=== PATIENT | female | born 1985 | race Caucasian/White ===

== ENCOUNTER 2022-08-25 18:11 | Emergency (ER) | payer MEDICAID, SELFPAY ==
[2022-08-25 18:29] VITALS: BP 127/75; PULSE 111; RESP 18; TEMP 36.6; O2SAT 98; BMI 29.2
[2022-08-25 18:46] LABS: Basophils % 0.3 %; Eosinophils % 0.2 %; Hematocrit 38.5 % (37.0-47.0); Hemoglobin 12.9 g/dL (11.5-15.3); Lymphocytes # 1.4 10^3/uL (0.8-4.8); Lymphocytes % 9.3 %; Mean Corpuscular HGB Conc 33.5 g/dL (30.0-36.0); Mean Corpuscular Hemoglobin 31.9 pg (28.0-34.0); Mean Corpuscular Volume 95.1 fl (81-99); Mean Platelet Volume 10.1 fL (7.4-10.4); Monocytes # 0.6 10^3/uL (0.2-0.9); Monocytes % 4.2 %; Neutrophils # 12.94 10^3/uL (1.8-7.7); Neutrophils % 85.7 %; Nucleated Red Blood Cells % 0 %; Platelet Count 206 10^3/cmm (130-400); Red Blood Count 4.05 10^6/uL (4.1-5.3); Red Cell Distribution Width 12.3 % (12.1-15.1); White Blood Count 15.1 10^3/uL (4.0-10.0)
--- NOTE | 2022-08-25 19:06 | USR_ITS ---
PROCEDURE INFORMATION: Exam: US First Trimester, Transabdominal and US , Transvaginal Exam date and time: 08/25/2022 7:22 PM Age: 36 years old Clinical indication: Lmp or gestational age (in weeks): 6w 3d; Antepartum complications; ; Patient HX: G5-p3-a1-l3 diffuse pelvic pain which radiates to her back x 3 days. Vaginal bleeding with brownish discharge x 3 days. ; Additional info: Preg/pain LABS AND CLINICAL REPORTS: Serum Choriogonadotropin (HCG): 3794 mIU/mL Last menstrual period start date: 07/10/2022 Gestational age (Established): 6 w 4 d Estimated due date (Established): 04/16/2023 TECHNIQUE: Imaging protocol: Real-time transabdominal obstetrical ultrasound of the maternal pelvis and a first trimester , less than 14 weeks 0 days, with image documentation. Transvaginal imaging was used for better evaluation of the fetus, adnexa, and/or cervix. COMPARISON: No relevant prior studies available. FINDINGS: Gestation: Negative for intrauterine or findings of retained products of conception. MATERNAL: Uterus: Uterus measures 8.1 cm x 5.7 cm x 4.5 cm. Anterior uterine body 2.7 cm fibroid. Endometrial stripe is normal at 2.9 mm. Cervix: Unremarkable. Right ovary/adnexa: Right ovary measures 2.7 cm x 3.1 cm x 19 cm. Right ovarian volume is 8.3 mL. Left ovary/adnexa: Left ovary measures 3.6 cm x 2.6 cm x 2 cm. Left ovarian volume is 10 mL. Intraperitoneal space: Small amount of nonspecific fluid in the pelvis. US/US OB <= 14 weeks fetus [id number] IMPRESSION: 1. Negative for intrauterine or findings of retained products of conception. If clinical concern for retained back to conception remains consider close clinical correlation, serial beta HCG levels and follow-up ultrasound. 2. Anterior uterine body 2.7 cm fibroid. 3. Small amount of nonspecific fluid in the pelvis.
--- NOTE | 2022-08-25 19:10 | W.ED.ABDPA2 ---
HPI - Abdominal Pain General: Chief Complaint: Abdominal Pain Stated Complaint: Preg ABD Pain Time Seen by Provider: 08/25/22 18:57 Source: patient Mode of arrival: ambulatory Limitations: no limitations History of Present Illness: 36 female states she believes she is roughly 6 weeks states she had some spotting here and there over the last 3 to 4 weeks has had some abdominal cramping over that time states her pain did worsen about an hour ago can is a bandlike across her lower abdomen she rates it a 4 out of 10 currently denies any worsening proving factors she is resting comfortably here. Associated Symptoms: Denies chills, diarrhea, dysuria, fever(s), nausea and vomiting Review of Systems Const: Denies: fever(s), chills or body aches ENMT: Denies: throat pain or dental pain Card: Denies: chest pain Resp: Denies: dyspnea GI: Reports: abdominal pain; Denies: nausea, vomiting or diarrhea : Denies: dysuria Musc: Denies: neck pain or back pain Skin/Breast: Denies: rash Neuro: Denies: headache(s) Physical Exam Const: COMMON NORMALS: no acute distress, patient oriented x3 and healthy appearing HENMT: COMMON NORMALS: normocephalic and atraumatic HEAD & SCALP: normocephalic and atraumatic Eye: COMMON NORMALS: conjunctivae normal CONJUNCTIVA: Yes conjunctivae normal Neck/C-Spine: COMMON NORMALS: full ROM and supple Chest: COMMONS NORMALS: normal inspection of the chest and normal palpation of entire chest wall Resp: COMMON NORMALS: normal respiratory effort, No retractions, No use of accessory muscles and clear to auscultation bilaterally AUSCULTATION: clear to auscultation bilaterally Cardio: COMMON NORMALS: regular rate, regular rhythm and No murmurs present (Cardio) RATE: regular rate RHYTHM: regular rhythm GI: COMMON NORMALS: Normal to inspection, nondistended, normoactive bowel sounds present, Soft to palpation and no masses PALPATION: Yes Soft to palpation OTHER: rlq tenderness Extremity: COMMON NORMALS: normal to inspection and full ROM Neuro: COMMON NORMALS: patient oriented x3, moves all extremities and no focal motor deficits Psych: COMMON NORMALS: mental status grossly normal, Normal thought process present and cooperative THOUGHT PROCESS: Normal thought process present Skin: COMMON NORMALS: no rashes or lesions noted and no wounds GENERAL SKIN EXAM: no rashes or lesions noted Course Vital Signs: Vital signs: Vital Signs Temperature 97.8 F 08/25/22 18:29 Pulse Rate 99 08/25/22 19:44 Respiratory Rate 18 08/25/22 19:44 Blood Pressure 123/81 08/25/22 19:14 Pulse Oximetry 97 08/25/22 19:44 Oxygen Delivery Me thod Room Air 08/25/22 19:44 MDM - Abdominal Pain Medical Decision Making Patient presents here with abdominal pain she did have elevated white count is tender in the right lower quadrant she does have an elevated quantitative over 3000 and ultrasound here shows no IUP I did speak to OB I am concerned of a possible ectopic she has no signs of ectopic at this point no heavy bleeding blood pressure is normal her pain is mild hemoglobin is normal. Did speak to her about getting a CT scan to rule out appendicitis she agreed that she should be safe that she has no signs of a viable . CT shows no signs appendicitis. I did speak to patient at length that we see no signs of ectopic at this point but still is very concerned about ectopic she is return in 48 hours for a repeat quantitative did inform her if she has any worsening pain or bleeding she is return immediately she understands agrees to plan. Lab Data 08/25/22 18:24 08/25/22 18:24 Labs/Radiology: Radiology Impressions Ultrasound 08/25/22 19:06 IMPRESSION: 1. Negative for intrauterine or findings of retained products of conception. If clinical concern for retained back to conception remains consider close clinical correlation, serial beta HCG levels and follow-up ultrasound. 2. Anterior uterine body 2.7 cm fibroid. 3. Small amount of nonspecific fluid in the pelvis. Abdomen/Pelvis CT 08/25/22 21:13 IMPRESSION: 1. Negative for acute inflammatory process in the abdomen or pelvis. 2. Hepatic steatosis suspected. Laboratory Results WBC 15.1 10^3/uL (4.0-10.0) H 08/25/22 18:24 RBC 4.05 10^6/uL (4.1-5.3) L 08/25/22 18:24 Hgb 12.9 g/dL (11.5-15.3) 08/25/22 18:24 Hct 38.5 % (37.0-47.0) 08/25/22 18:24 MCV 95.1 fl (81-99) 08/25/22 18:24 MCH 31.9 pg (28.0-34.0) 08/25/22 18:24 MCHC 33.5 g/dL (30.0-36.0) 08/25/22 18:24 RDW 12.3 % (12.1-15.1) 08/25/22 18:24 Plt Count 206 10^3/cmm (130-400) 08/25/22 18:24 MPV 10.1 fL (7.4-10.4) 08/25/22 18:24 Neut % (Auto) 85.7 % 08/25/22 18:24 Lymph % (Auto) 9.3 % 08/25/22 18:24 [place] % (Auto) 4.2 % 08/25/22 18:24 Eos % (Auto) 0.2 % 08/25/22 18:24 Baso % (Auto) 0.3 % 08/25/22 18: Neut # (Auto) 12.94 10^3/uL (1.8-7.7) H 08/25/22 18:24 Lymph # (Auto) 1.4 10^3/uL (0.8-4.8) 08/25/22 18:24 [place] # (Auto) 0.6 10^3/uL (0.2-0.9) 08/25/22 18:24 Eos # (Auto) 0.0 10^3/uL (0.0-0.8) 08/25/22 18: Baso # (Auto) 0.0 10^3/uL (0.0-0.1) 08/25/22 18:24 Nucleated RBC % (auto) 0 % 08/25/22 18: Nucleated RBCs # 0.0 /100WBC 08/25/22 18:24 Sodium 129 mmol/L (136-145) L 08/25/22 18:24 Potassium 3.5 mmol/L (3.5-5.1) 08/25/22 18:24 Chloride 98 mmol/L (98-107) 08/25/22 18:24 Carbon Dioxide 20 mmol/L (22-29) L 08/25/22 18:24 Anion Gap 14.5 (5-19) 08/25/22 18:24 BUN 9 mg/dL (6-20) 08/25/22 18:24 Creatinine 0.6 mg/dL (0.5-0.9) 08/25/22 18:24 GFR Calculation 114.4 mL/min (90-130) 08/25/22 18:24 Glucose 119 mg/dL (65-115) H 08/25/22 18:24 Calculated Osmolality 268 mOsm/kg (285-295) L 08/25/22 18:24 Calcium 8.5 mg/dL (8.5-10.5) 08/25/22 18:24 Total Bilirubin 0.2 mg/dL (0.15-1.2) 08/25/22 18:24 AST 13 U/L (0-32) 08/25/22 18:24 ALT 12 U/L (0-33) 08/25/22 18:24 Alkaline Phosphatase 48 U/L (35-105) 08/25/22 18:24 Total Protein 6.8 g/dL (6.6-8.7) 08/25/22 18:24 Albumin 4.4 g/dL (3.5-5.2) 08/25/22 18:24 Globulin 2.4 g/dL (1.3-4.6) 08/25/22 18:24 Lipase 30 U/L (13-60) 08/25/22 18:24 Ser , Semi-Qnt 3794.00 mIU/mL 08/25/22 18:24 Urine Color Light yellow (Yellow) 08/25/22 19:34 Urine Appearance Sl hazy (CLEAR) A 08/25/22 19:34 Urine pH 6 (5-7) 08/25/22 19:34 Ur Specific [place] 1.005 (1.005-1.030) 08/25/22 19:34 Urine Protein Neg (Negative) 08/25/22 19:34 Urine Glucose (UA) Norm (Normal) 08/25/22 19:34 Urine Ketones Negative (Negative) 08/25/22 19:34 Urine Blood 3+ (Negative) H 08/25/22 19:34 Urine Nitrate Negative (Negative) 08/25/22 19:34 Urine Bilirubin Neg (Negative) 08/25/22 19:34 Urine Urobilinogen Norm mg/dL (Negative) 08/25/22 19:34 Ur Leukocyte Esterase Trace (Negative) H 08/25/22 19:34 Urine RBC 5-10 /hpf (0-2) H 08/25/22 19:34 Urine WBC 0-4 /hpf (0-5) H 08/25/22 19:34 Ur Squamous Epith Cells 0-4 /hpf (0-5) H 08/25/22 19:34 Amorphous Sediment Not Reportable 08/25/22 19:34 Urine Bacteria Trace /hpf (NONE) 08/25/22 19:34 Blood Type A Positive 08/25/22 20:14 Rho(D) Type Positive 08/25/22 20:14 Antibody Screen Negative 08/25/22 20:14 Discharge Plan Discharge Patient Disposition: Home Clinical Impression: Abdominal pain during Condition: Stable Discharge Orders: Discharge ED (Routine); Ordered 08/25/22 Ordered By: Yusuf Marino Referrals: Chioma Reza MD [Physician] - 1-3 days Discharge Diet: Advance as tolerated Discharge Activity: Use walker/crutches as instructed Patient Instructions: Abdominal Pain (ED), Abdominal Pain in (ED) Activity Restrictions/Additional Instructions: Will need repeat blood draw in 48 hours follow-up with OB or come to the ER for redraw return to the ER if you have severe pain or bleeding Coding Level of Care Code ED [employer] Screen Watcher for Floyd Arias
[2022-08-25 19:14] VITALS: BP 123/81; PULSE 101; RESP 18; O2SAT 99
[2022-08-25 19:15] LABS: Alanine Aminotransferase 12 U/L (0-33); Albumin Level 4.4 g/dL (3.5-5.2); Alkaline Phosphatase 48 U/L (35-105); Aspartate Amino Transferase 13 U/L (0-32); Blood Urea Nitrogen 9 mg/dL (6-20); Calcium 8.5 mg/dL (8.5-10.5); Carbon Dioxide 20 mmol/L (22-29); Chloride 98 mmol/L (98-107); Globulin 2.4 g/dL (1.3-4.6); Glomerular Filtration Rate 114.4 mL/min (90-130); Glucose 119 mg/dL (65-115); Lipase 30 U/L (13-60); Osmolality Calculated 268 mOsm/kg (285-295); Sodium 129 mmol/L (136-145); Total Bilirubin 0.2 mg/dL (0.15-1.2); Total Protein 6.8 g/dL (6.6-8.7)
[2022-08-25 19:19] LABS: Anion Gap 14.5 (5-19); Potassium 3.5 mmol/L (3.5-5.1)
[2022-08-25] MEDS: sodium chloride 0.9% 1,000 ML 999 ML IV (19:27)
[2022-08-25 19:44] VITALS: PULSE 99; RESP 18; O2SAT 97
[2022-08-25 19:47] LABS: Glucose Urine UA Norm (Normal); Ketones Urine Negative (Negative); Protein Urine Neg (Negative); Specific Gravity, Urine 1.005 (1.005-1.030); Urine Appearance SL Hazy (CLEAR); Urine Color Light yellow (Yellow); pH Urine 6 (5-7)
[2022-08-25 19:48] LABS: Add Urine Microscopic? YES; Bilirubin Urine Neg (Negative); Blood Urine 3+ (Negative); Leukocyte Esterase Urine Trace (Negative); Nitrate Urine Negative (Negative); Urobilinogen Urine Norm (Negative)
[2022-08-25 19:49] LABS: Add Urine Culture? No; Bacteria Urine TRACE /hpf; Squamous Epithelial Cell Urine 0-4 /hpf (0-5); WBC Urine 0-4 /hpf (0-5)
--- NOTE | 2022-08-25 21:13 | CTR_ITS ---
PROCEDURE INFORMATION: Exam: CT Abdomen And Pelvis With Contrast Exam date and time: 08/25/2022 9:19 PM Age: 36 years old Clinical indication: Abdominal pain; Localized; Right lower quadrant (rlq); Additional info: Abd pain TECHNIQUE: Imaging protocol: Computed tomography of the abdomen and pelvis with contrast. Radiation optimization: All CT scans at this facility use at least one of these dose optimization techniques: automated exposure control; mA and/or kV adjustment per patient size (includes targeted exams where dose is matched to clinical indication); or iterative reconstruction. Contrast material: OMNI 350; Contrast volume: 100 ml; Contrast route: INTRAVENOUS (IV); REPORTING DATA: Count of CT and Cardiac NM exams in prior 12 months: This patient has received 0 known CTs and 0 known cardiac nuclear medicine studies in the 12 months prior to the current study. COMPARISON: US OB <= 14 weeks fetus [id number] 08/25/2022 7:22 PM RADIATION DOSE METRICS: Total DLP (mGy-cm): 536.43 FINDINGS: Liver: Hepatic steatosis suspected. Gallbladder and bile ducts: Normal. No calcified stones. No ductal dilation. Pancreas: Normal. No ductal dilation. Spleen: Normal. No splenomegaly. Adrenal glands: Normal. No mass. Kidneys and ureters: Normal. No hydronephrosis. Stomach and bowel: Unremarkable. No obstruction. No mucosal thickening. Appendix: No evidence of appendicitis. Intraperitoneal space: Unremarkable. No free air. No significant fluid collection. Vasculature: Unremarkable. No abdominal aortic aneurysm. Lymph nodes: Unremarkable. No enlarged lymph nodes. Urinary bladder: Unremarkable as visualized. Reproductive: Unremarkable as visualized. Bones/joints: Unremarkable. No acute fracture. Soft tissues: Unremarkable. CT/CT abdomen pelvis w con* [id number] IMPRESSION: 1. Negative for acute inflammatory process in the abdomen or pelvis. 2. Hepatic steatosis suspected.
[2022-08-25] MEDS: iohexol 350 mg/mL 500 mL Btl (per mL) IV (21:22)
--- NOTE | 2022-08-26 11:04 | PC.SOCIAL ---
Addendum entered by Michelle Jones 09/08/22 12:19: Patient had a follow up appointment scheduled with [facility] - patient did attend appointment. Original Note: [facility] referral Referral sent to [facility]. Clinic to contact patient with appt date/time.
== END 2022-08-25 21:53 | disposition home or self-care (01) ==
PROVIDERS: Emergency Provider Emergency Medicine
DX: O26.891 Other specified pregnancy related conditions, first trimester (principal); R10.9 Unspecified abdominal pain; Z3A.01 Less than 8 weeks gestation of pregnancy
CPT/HCPCS: 36415; 74177; 76801; 80053; 81001; 83690; 84702; 85025; 86850; 86900; 96360; 96361; 99285; J7030; Q9967

== ENCOUNTER → 2022-08-27 16:00 | Outpatient (BNVA) | payer MEDICAID, SELFPAY | PROVIDERS: Visit Provider Obstetrics & Gynecology | DX: N92.6 Irregular menstruation, unspecified (principal) | CPT/HCPCS: 84702 ==

== ENCOUNTER → 2022-08-30 11:11 | Outpatient (BNVA) | payer MEDICAID, SELFPAY | PROVIDERS: Visit Provider Obstetrics & Gynecology | DX: N93.9 Abnormal uterine and vaginal bleeding, unspecified (principal) | CPT/HCPCS: 84702 ==

== ENCOUNTER 2022-09-01 14:45 | Outpatient (CLI) | payer MEDICAID, SELFPAY ==
--- NOTE | 2022-09-01 15:30 | US_ITS ---
WS: [id number] US transvaginal [id number] HISTORY: Positive beta hCG. Vaginal bleeding. COMPARISON: Prior ultrasound 08/17/[address] 08/25/2022. Uterus: 8.0 cm x 5.0 cm x 3.3 cm. Normal size anteverted uterus. No fibroid or mass. Endometrium: 0.5 cm. Mild heterogeneity within the endometrium measures 5 mm. Small amount of adjacen t fluid along the endometrial stripe. Right ovary: 2.9 cm x 3.3 cm x 2.1 cm. Normal size and vascularity, no cystic or solid masses. Inseparable from the RIGHT ovary is a solid mass extending superiorly from the pelvis. Only mild incr eased vascularity. This is a solid mass with a few scattered cystic foci. This mass measures 2.3 x 2. 7 x 5.2 cm. Left ovary: 1.8 cm x 2.0 cm x 2.5 cm. Normal size and vascularity, no cystic or solid masses. Numerous small peripheral follicles. There is a small to moderate amount of complex free fluid in the pelvis. More fluid than typically no laila. Very minimal dilatation of the RIGHT renal pelvis. US/US transvaginal [id number] IMPRESSION: 1. No intrauterine gestation identified. 2. Solid mass with mild increased vascularity in the RIGHT adnexa extending whalen perior from the pelvis. This mass measures 2.3 x 2.7 x 5.2 cm and is inseparabl e from the RIGHT ovary. This mass was not identified on the prior ultrasound of 08/25/2022. This mass is noted on the CT performed on 08/25/2022. Mass is insepa rable from the RIGHT ovary and the RIGHT lateral uterus and involves the expect ed location of the round ligament and fallopian tube. Mass continues superiorly and is inseparable from several small bowel loops and also the RIGHT ureter. O n the CT examination the RIGHT ureter was very mildly dilated. On today's ultra sound there is minimal splitting of the renal pelvis but no hydronephrosis at t his time. Differential includes germ cell tumor, lymphoma other tumors associat ed with the fallopian tube or small bowel. With a positive beta-hCG ectopic pre gnancy has to be considered also. This does not have the typical appearance for ectopic . Chronic ectopic should be considered. Surgical ev aluation is necessary to confirm diagnosis. 3. Moderate free fluid in the pelvis. This is not simple fluid. May contain bl ood or other proteinaceous products. 4. Mild heterogeneity along the endometrium. Increased echogenicity with adjac ent fluid. A small polyp is not completely excluded on this appearance. Notified Cruz Valdez MD at 09/01/2022 4:31 PM.
== END 2022-09-01 14:46 | disposition home or self-care (01) ==
LOC: RAD 14:48
PROVIDERS: PCP Obstetrics & Gynecology; Visit Provider Obstetrics & Gynecology
DX: O26.899 Other specified pregnancy related conditions, unspecified trimester (principal); R10.9 Unspecified abdominal pain; Z32.01 Encounter for pregnancy test, result positive; N93.9 Abnormal uterine and vaginal bleeding, unspecified; N83.8 Other noninflammatory disorders of ovary, fallopian tube and broad ligament; Z3A.00 Weeks of gestation of pregnancy not specified
CPT/HCPCS: 76830; 84702

== ENCOUNTER → 2022-09-02 11:35 | Outpatient (BNVA) | payer MEDICAID, SELFPAY | PROVIDERS: PCP Obstetrics & Gynecology; Visit Provider Obstetrics & Gynecology | DX: N93.9 Abnormal uterine and vaginal bleeding, unspecified (principal) | CPT/HCPCS: 84702 ==

== ENCOUNTER 2022-09-03 10:53 | Inpatient (IN) | payer MEDICAID, SELFPAY ==
[2022-09-03 11:06] VITALS: BP 142/85; PULSE 108; RESP 17; TEMP 36.8; O2SAT 100; BMI 29.9
--- NOTE | 2022-09-03 11:17 | CT_ITS ---
WS: [id number] CT scan of the abdomen and pelvis with IV contrast. Additional two-dimensional coronal and sagittal r econstruction was performed. 09/03/2022 Clinical Data: abd pain Comparison: CT abdomen pelvis, 08/25/2022, transvaginal ultrasound, 09/01/2022 DLP: 444.[address] scans at [facility] use at least one of these dose optimization techniques: automated e xposure control; mA and/or kV adjustment per patient size (includes targeted exams where dose is matc hed to clinical indication); or iterative reconstruction. Findings: The lower lungs show no nodules, masses or effusions. The liver, gallbladder, spleen, adrenal glands and pancreas are normal. The kidneys show equal bilateral contrast excretion with no cyst or masses. No hydronephrosis or amapro l calculi are seen. The abdominal aorta is normal in size. No appendicitis or diverticulitis is seen. There is a lesion adjacent to the right side of the bladde r on the right side of the uterus which has an ill defined border with the density of blood or tissue . This lesion is seen best on the axial view #63 of 87 and measures 1.9 x 3.6 cm. On the coronal view it is seen on #14 of 44 and measures approximately 7.3 cm. There is minimal fluid in the cul-de-sac. The bladder is unremarkable. No inguinal hernia is seen. The uterus is normal. The bones of the lower thorax, lumbar spine, pelvis, and hips are normal. CT/CT abdomen pelvis w con* [id number] Impression: 1. Lesion measuring approximately 1.9 x 3.6 x 7.3 cm located adjacent to the ri ght lateral superior bladder and right lateral aspect of the uterus which could represent blood or tissue perhaps in the broad ligament with possible involvem ent of bowel. This lesion could represent inflammatory tissue. 2. Fluid in the cul-de-sac.
[2022-09-03 12:50] LABS: Basophils % 0.3 %; Hematocrit 38.3 % (37.0-47.0); Hemoglobin 12.9 g/dL (11.5-15.3); Lymphocytes # 1.2 10^3/uL (0.8-4.8); Lymphocytes % 18.9 %; Mean Corpuscular HGB Conc 33.7 g/dL (30.0-36.0); Mean Corpuscular Hemoglobin 31.5 pg (28.0-34.0); Mean Corpuscular Volume 93.4 fl (81-99); Monocytes # 0.3 10^3/uL (0.2-0.9); Monocytes % 4.4 %; Neutrophils # 4.83 10^3/uL (1.8-7.7); Neutrophils % 76.2 %; Nucleated Red Blood Cells % 0 %; Platelet Count 230 10^3/cmm (130-400); Red Cell Distribution Width 11.9 % (12.1-15.1); White Blood Count 6.3 10^3/uL (4.0-10.0)
[2022-09-03 13:04] LABS: HCG, Serum Qual Positive (Negative)
[2022-09-03 13:09] LABS: Alanine Aminotransferase 11 U/L (0-33); Albumin Level 4.6 g/dL (3.5-5.2); Alkaline Phosphatase 63 U/L (35-105); Anion Gap 14.6 (5-19); Aspartate Amino Transferase 12 U/L (0-32); Blood Urea Nitrogen 7 mg/dL (6-20); Calcium 9.1 mg/dL (8.5-10.5); Carbon Dioxide 26 mmol/L (22-29); Chloride 101 mmol/L (98-107); Globulin 2.9 g/dL (1.3-4.6); Glomerular Filtration Rate 82.1 mL/min (90-130); Glucose 124 mg/dL (65-115); Osmolality Calculated 285 mOsm/kg (285-295); Potassium 3.6 mmol/L (3.5-5.1); Sodium 138 mmol/L (136-145); Total Bilirubin 0.3 mg/dL (0.15-1.2); Total Protein 7.5 g/dL (6.6-8.7)
[2022-09-03] MEDS: iohexol 350 mg/mL 500 mL Btl (per mL) IV (13:52)
--- NOTE | 2022-09-03 15:08 | W.ED.RECABL ---
HPI - Recheck/Abnormal Lab/Rx General: Chief Complaint: Recheck/Abnormal Lab/Rx Stated Complaint: abnormal ultrasound, sent by jenny Time Seen by Provider: 09/03/22 13:50 Source: patient Mode of arrival: ambulatory History of Present Illness: 36-year-old female presents emergency room directly by Dr. Valdez she recently was seen had a CT was negative beta-hCG that was positive but they were unable identified intrauterine she has had a follow-up with Dr. Valdez since then on her transvaginal ultrasound there was a mass that appeared to be associated with the bladder and possibly the broad ligament. He sent her back today to get reevaluated she also had a Nexplanon placed Nexplanon has been removed her beta-hCG has been trending down she is not having any pain or symptoms. Associated symptoms: none Review of Systems Const: Denies: fever(s), chills, body aches, change in appetite, fatigue or malaise ENMT: Denies: throat pain, ear or mastoid pain, nasal discharge or nasal congestion Card: Denies: chest pain, edema, dyspnea on exertion or orthopnea Resp: Denies: dyspnea, productive cough or non-productive cough GI: Reports: abdominal pain (Pelvic); Denies: nausea, vomiting, hematemesis, coffee ground emesis, diarrhea, constipation, bloating, hematochezia or melena : Denies: flank pain, difficulty voiding, dysuria, urinary frequency or urinary urgency Skin/Breast: Denies: rash or pruritus PFSH ED PFSH: Family History Mother Thyroid disease Denies family history of Cervical cancer Colon cancer Ovarian cancer Diabetes Breast cancer Hypertension Uterine cancer Stroke Physical Exam Const: GENERAL APPEARANCE: cooperative and comfortable ORIENTATION/CONSCIOUSNESS: Yes awake, Yes oriented to person, Yes oriented to place and Yes oriented to time HENMT: COMMON NORMALS: normocephalic, atraumatic and hearing grossly normal bilaterally HEAD & SCALP: normocephalic and atraumatic Resp: COMMON NORMALS: normal respiratory effort, No retractions, No use of accessory muscles and clear to auscultation bilaterally AUSCULTATION: clear to auscultation bilaterally Cardio: COMMON NORMALS: regular rate, regular rhythm and No murmurs present (Cardio) RATE: regular rate RHYTHM: regular rhythm GI: COMMON NORMALS: Soft to palpation and No hepatosplenomegaly present AUSCULTATION: Yes normoactive bowel sounds PALPATION: Yes Soft to palpation, No Tenderness to palpation present (GI), No Guarding due to palpation present (GI) and Yes No hepatosplenomegaly present Extremity: COMMON NORMALS: normal to inspection, capillary refill normal, no clubbing, cyanosis or edema, no calf tenderness and no pedal edema Neuro: SENSORIUM/ORIENTATION: Yes oriented to person, Yes oriented to place and Yes oriented to time Skin: COMMON NORMALS: no rashes or lesions noted GENERAL SKIN EXAM: no rashes or lesions noted Course Vital Signs: Vital signs: Vital Signs Temperature 99 F 09/05/22 10:23 Pulse Rate 82 09/05/22 10:23 Respiratory Rate 18 09/05/22 10:23 Blood Pressure 90/60 09/05/22 10:23 Pulse Oximetry 96 09/05/22 04:56 Oxygen Delivery Me thod Room Air 09/05/22 04:56 Oxygen Flow Rate 6 09/04/22 11:23 MDM - Recheck/Abnormal Lab/Rx Medical Decision Making Reviewed findings with Dr. Valdez as well as the patient and her Dr. Valdez recommends patient be placed on observation he will take patient for diagnostic laparoscopy of the pelvic mass tomorrow. Pain well controlled at this time orders written Medical Records I reviewed the patient's medical records. Lab Data I reviewed the patient's lab results. 09/05/22 04:53 09/03/22 12:32 Radiology Impressions Abdomen/Pelvis CT 09/03/22 11:17 Impression: 1. Lesion measuring approximately 1.9 x 3.6 x 7.3 cm located adjacent to the right lateral superior bladder and right lateral aspect of the uterus which could represent blood or tissue perhaps in the broad ligament with possible involvement of bowel. This lesion could represent inflammatory tissue. 2. Fluid in the cul-de-sac. Laboratory Results WBC 6.3 10^3/uL (4.0-10.0) 09/03/22 12:32 RBC 4.10 10^6/uL (4.1-5.3) 09/03/22 12:32 Hgb 12.9 g/dL (11.5-15.3) 09/03/22 12:32 Hct 38.3 % (37.0-47.0) 09/03/22 12:32 MCV 93.4 fl (81-99) 09/03/22 12:32 MCH 31.5 pg (28.0-34.0) 09/03/22 12:32 MCHC 33.7 g/dL (30.0-36.0) 09/03/22 12:32 RDW 11.9 % (12.1-15.1) L 09/03/22 12:32 Plt Count 230 10^3/cmm (130-400) 09/03/22 12:32 MPV 10.0 fL (7.4-10.4) 09/03/22 12:32 Neut % (Auto) 76.2 % 09/03/22 12:32 Lymph % (Auto) 18.9 % 09/03/22 12:32 [place] % (Auto) 4.4 % 09/03/22 12:32 Eos % (Auto) 0.0 % 09/03/22 12:32 Baso % (Auto) 0.3 % 09/03/22 12:32 Neut # (Auto) 4.83 10^3/uL (1.8-7.7) 09/03/22 12:32 Lymph # (Auto) 1.2 10^3/uL (0.8-4.8) 09/03/22 12:32 [place] # (Auto) 0.3 10^3/uL (0.2-0.9) 09/03/22 12:32 Eos # (Auto) 0.0 10^3/uL (0.0-0.8) 09/03/22 12:32 Baso # (Auto) 0.0 10^3/uL (0.0-0.1) 09/03/22 12:32 Nucleated RBC % (auto) 0 % 09/03/22 12:32 Nucleated RBCs # 0.0 /100WBC 09/03/22 12:32 Sodium 138 mmol/L (136-145) 09/03/22 12:32 Potassium 3.6 mmol/L (3.5-5.1) 09/03/22 12:32 Chloride 101 mmol/L (98-107) 09/03/22 12:32 Carbon Dioxide 26 mmol/L (22-29) 09/03/22 12:32 Anion Gap 14.6 (5-19) 09/03/22 12:32 BUN 7 mg/dL (6-20) 09/03/22 12:32 Creatinine 0.8 mg/dL (0.5-0.9) 09/03/22 12:32 GFR Calculation 82.1 mL/min (90-130) L 09/03/22 12:32 Glucose 124 mg/dL (65-115) H 09/03/22 12:32 Calculated Osmolality 285 mOsm/kg (285-295) 09/03/22 12:32 Calcium 9.1 mg/dL (8.5-10.5) 09/03/22 12:32 Total Bilirubin 0.3 mg/dL (0.15-1.2) 09/03/22 12:32 AST 12 U/L (0-32) 09/03/22 12:32 ALT 11 U/L (0-33) 09/03/22 12:32 Alkaline Phosphatase 63 U/L (35-105) 09/03/22 12:32 Total Protein 7.5 g/dL (6.6-8.7) 09/03/22 12:32 Albumin 4.6 g/dL (3.5-5.2) 09/03/22 12:32 Globulin 2.9 g/dL (1.3-4.6) 09/03/22 12:32 HCG, Qual Positive (Negative) H 09/03/22 12:32 Ser , Semi-Qnt 1969.00 mIU/mL 09/03/22 12:32 Discharge Plan Discharge Patient Disposition: Admitted As Inpatient Admit Provider: Cruz Valdez Clinical Impression: Pelvic mass Condition: Stable Discharge Diet: Usual diet Discharge Activity: Limit activity as instructed Coding Level of Care Code ED Jig Grinder for Reginaldg Juana
[2022-09-03 18:22] VITALS: BP 114/80; PULSE 95; RESP 18; O2SAT 99
[2022-09-03 18:23] VITALS: BP 114/80; PULSE 95; RESP 18; O2SAT 99
[2022-09-03] MEDS: D5-NS 0.45% + KCL 20 mEq 20 MEQ/1,000 ML BAG 100 MEQ IV (20:42)
[2022-09-03] MEDS: ondansetron 2 mg/ML SDV 2 mL 4 MG IVP (21:28)
[2022-09-03 22:30] VITALS: BP 132/78; PULSE 80; RESP 16; TEMP 36.8; O2SAT 99
[2022-09-04] VITALS (17 sets, daily range): BP systolic 87–121; BP diastolic 49–91; PULSE 71–97; RESP 15–18; TEMP 36.3–37.3; O2SAT 96–100
[2022-09-04 04:46] LABS: Basophils % 0.3 %; Eosinophils # 0.1 10^3/uL (0.0-0.8); Eosinophils % 1.8 %; Hemoglobin 11.8 g/dL (11.5-15.3); Lymphocytes # 2.5 10^3/uL (0.8-4.8); Lymphocytes % 40.2 %; Mean Corpuscular HGB Conc 33.7 g/dL (30.0-36.0); Mean Corpuscular Hemoglobin 31.3 pg (28.0-34.0); Mean Corpuscular Volume 92.8 fl (81-99); Mean Platelet Volume 9.7 fL (7.4-10.4); Monocytes # 0.4 10^3/uL (0.2-0.9); Monocytes % 6.6 %; Neutrophils # 3.17 10^3/uL (1.8-7.7); Neutrophils % 50.9 %; Nucleated Red Blood Cells % 0 %; Platelet Count 219 10^3/cmm (130-400); Red Blood Count 3.77 10^6/uL (4.1-5.3); Red Cell Distribution Width 11.9 % (12.1-15.1); White Blood Count 6.2 10^3/uL (4.0-10.0)
[2022-09-04] MEDS: D5-NS 0.45% + KCL 20 mEq 20 MEQ/1,000 ML BAG 100 MEQ IV (06:37)
--- NOTE | 2022-09-04 08:55 | PC.NURSE ---
Pt to surgery holding awaiting procedure.
--- NOTE | 2022-09-04 09:01 | W.PM.OPSUD ---
Surgery/Procedure H&P Update DATE OF PROCEDURE: September 04, 2022 DATE H&P PERFORMED: 08/30/22 H&P UPDATE INFORMATION: I have reviewed H&P completed within last 30 days, I have examined patient prior to procedure and No changes to prior documentation PLANNED PROCEDURE: Operation Date: 09/04/22 09:50 Proposed Procedures p Laparoscopy Diagnostic(Not Applicable) - Cruz Valdez MD s possible Laparoscopic Salpingo Oophorectomy(Not Applicable) - Cruz Valdez MD
[2022-09-04] MEDS: sodium chloride 0.9% 1,000 ML 30 ML IV (09:15)
[2022-09-04] MEDS: ceFAZolin 1,000 mg SDV 1000 MG IVP (09:50)
--- NOTE | 2022-09-04 10:47 | ANES.PREANE2 ---
Pre-Anesthetic Assessment Height/Weight: Height 1.47 m Weight 64.864 kg Temp Pulse Resp BP Pulse Ox O2 Del Method 98.2 F 81 16 118/71 99 Room Air 09/04/22 09:05 09/04/22 09:05 09/04/22 09:05 09/04/22 09:05 09/04/22 09:05 09/04/22 09:05 Operation Date: 09/04/22 09:50 Proposed Procedures p Laparoscopy Diagnostic(Not Applicable) - Cruz Valdez MD s possible Laparoscopic Salpingo Oophorectomy(Not Applicable) - Cruz Valdez MD Familial anesthetic complications: none Was Beta Ramirez taken within 24 hours: N/A Was Clonidine taken within 24 hours: N/A Last intake: Intake Last Liquid Date 09/03/22 Last Liquid Time 20:00 Last Solid Date 09/03/22 Last Solid Time 20:00 Social No alcohol and No tobacco Exam alert, oriented x 3, clear to auscultation bilaterally and regular rate & rhythm Airway Submandibular: within normal limits Cervical ROM: within normal limits Mallampati: Class II Dentition: full Comments: Comments: Braces History/ROS No significant history except as noted Anesthetic Plan ASA status: 1E Anesthesia: General Medications/Allergies Home Medications Medication Instructions Recorded Confirmed Last Taken Type No Known Home Medications 08/27/22 09/03/22 Unknown History Allergies Allergy/AdvReac Type Severity Reaction Status Date / Time No Known Allergies Allergy Verified 09/03/22 09:00 Current Medications Generic Name Dose Route Start Last Admin Trade Name Freq PRN Reason Stop Dose Admin Potassium Chloride/Dextrose/Sod Cl 20 meq in 1,000 mls @ 100 mls/hr 09/03/22 18:38 09/04/22 06:37 D5-Ns 0.45% + Kcl 20 Meq IV 100 mls/hr .Q10H ELVIRA Administration Ondansetron HCl 4 mg 09/03/22 18:38 09/03/22 21:28 Ondansetron 2 Mg/Ml Sdv 2 Ml IVP 4 mg Q6H PRN Administration NAUSEA AND VOMITING PFSH Anesthesia Family History Mother Thyroid disease Denies family history of Cervical cancer Colon cancer Ovarian cancer Diabetes Breast cancer Hypertension Uterine cancer Stroke Data Anesthesia 09/04/22 04:42 09/03/22 12:32 Short CBC 09/03/22 09/04/22 Range/Units 12:32 04:42 WBC 6.3 6.2 (4.0-10.0) 10^3/uL Hgb 12.9 11.8 (11.5-15.3) g/dL Hct 38.3 35.0 L (37.0-47.0) % MCV 93.4 92.8 (81-99) fl Plt Count 230 219 (130-400) 10^3/cmm Neut % (Auto) 76.2 50.9 % Neut # (Auto) 4.83 3.17 (1.8-7.7) 10^3/uL BMP 09/03/22 12:32 Sodium 138 Potassium 3.6 Chloride 101 Carbon Dioxide 26 BUN 7 Creatinine 0.8 Glucose 124 H Calcium 9.1 Liver Function 09/03/22 Range/Units 12:32 Total Bilirubin 0.3 (0.15-1.2) mg/dL AST 12 (0-32) U/L ALT 11 (0-33) U/L Alkaline Phosphatase 63 (35-105) U/L Albumin 4.6 (3.5-5.2) g/dL Cardiac Studies: No Data to Display
--- NOTE | 2022-09-04 11:05 | PM.OP ---
Operative Report Date of procedure: September 04, 2022 Pre-op diagnosis: Right adnexal mass. Vaginal bleeding. Post-op diagnosis: Same as above. Omental adhesions to right lower anterior abdominal wall Post-op findings: Right fallopian tube ectopic Procedure done: Right salpingectomy. Lysis of adhesions. Specimens removed/disposition: Dilated right fallopian tube Surgeon: Cruz Valdez MD Estimated blood loss (mL): 200 IV fluids (mL): 800 Urine output (mL): 400 Complications: None Procedure: After informed consent, the patient was taken to the operating room where general anesthesia was administered. She was placed in the dorsal lithotomy position and prepped and draped in sterile fashion. Pre-Procedure Time-Out verifying the correct patient identity, correct procedure verified with consent, correct site and side, correct patient position, availability of correct implants and any special equipment or requirements was performed and acknowledge by the OR team. The patient was examined under anesthesia and found to have a normal uterus with normal adnexa. A weighted speculum was placed in the vagina, and the anterior lip of cervix was grasped with the single toothed tenaculum. A uterine manipulator was advanced into the endocervical canal and uterus. The tenaculum was removed after uterine manipulator was secured. The speculum was removed from the vagina. An intraumbilical incision was made with a scalpel. While tenting up on the abdomen, a Verres needle was admitted into the intra-abdominal cavity. A saline drop test was performed and noted to be within normal limits. Pneumoperitoneum was attained with 4 liters of carbon dioxide. The Verres needle was removed. A 5 mm Opitc view trocar and sleeve were admitted into the abdomen and laparoscopic confirmation of location was achieved. A second incision was made 3 cm above the symphysis pubis, and a 5 mm trocar sleeves were admitted into the abdomen under direct laparoscopic visualization without complication. A survey of the abdominal cavity revealed moderate amount of free blood in cul-de-sac and a right fallopian tube ectopic and omental adhesions to the right lower anterior abdominal wall. Then the fallopian tube and mesosalpinx were grasped and the underlying mesosalpinx was cauterized/sealed and cut using the Enseal device. Serial cauterization/sealing and cutting was used to separate the fallopian tube from the underlying mesosalpinx until it could be amputated cutting it approximated 4 cm from the cornua. The suprapubic 5 mm trocar was removed and a 10mm throcar was introduced under direct laparoscopic visualization without complication to introduce the endobag. Then a third incision was made left lower quadrant and a 5 mm trocar sleeves were admitted into the abdomen under direct laparoscopic visualization without complication to use the grasper. The right fallopian tube and ectopic was grasped and placed in a endobag and removed from the abdominal cavity thorough the suprapubic trocar port and sent to pathology. The pelvic area was copiously irrigated and cleared of all free blood. Good hemostasis was noted. Then the omental adhesions noted to the right anterior abdominal wall were lysed with the Enseal device. Good homeostasis noted. the instruments were removed. The suprapubic trocar port was removed under direct visualization insuring good hemostasis. The fascia at the suprapubic port was closed with o Vricryl. Then the carbon dioxide was allowed to escape from the abdomen. The left lower quadrant and intraumbilical trocar sleeve were withdrawn under visualization with laparoscope in the sleeve to insure hemostasis. The skin incisions were closed with 3-O Monocryl subcuticular stich and Dermabond. The instruments were removed from the vagina, and excellent hemostasis was noted. The patient tolerated the procedure well, and sponge, lap and needle count were correct times two. The patient was taken to the recovery room in good condition.
[2022-09-04] MEDS: fentaNYL 50 mcg/mL INJ 2mL IVP (11:40)
[2022-09-04] MEDS: ketorolac 30 mg/mL INJ IVP ×2 (13:57→20:23)
[2022-09-04] MEDS: dextrose 5%-lactated ringers 1,000 ML 125 ML IV (13:57)
--- NOTE | 2022-09-04 15:11 | ANE.PACU2 ---
Inpatient post-anesthesia follow up: Airway intact: Yes Vital signs: Temperature 99.0 F Pulse Rate 72 Respiratory Rate 18 Blood Pressure 102/70 Pulse Oximetry 100 Oxygen Delivery Me thod Room Air Oxygen Flow Rate 6 Fraction of Inspir ed Oxygen Hydration adequate: Yes Nausea and vomiting: No Pain level: 3 Mental status: Baseline
[2022-09-04] MEDS: docusate sodium 100 mg Capsule PO (18:43)
[2022-09-05] MEDS: ketorolac 30 mg/mL INJ IVP (02:17)
[2022-09-05 04:56] VITALS: BP 98/63; PULSE 82; RESP 16; TEMP 36.7; O2SAT 96
[2022-09-05 05:23] LABS: Hematocrit 31.6 % (37.0-47.0); Hemoglobin 10.5 g/dL (11.5-15.3); Mean Corpuscular HGB Conc 33.2 g/dL (30.0-36.0); Mean Corpuscular Hemoglobin 31.5 pg (28.0-34.0); Mean Corpuscular Volume 94.9 fl (81-99); Mean Platelet Volume 9.9 fL (7.4-10.4); Platelet Count 201 10^3/cmm (130-400); Red Blood Count 3.33 10^6/uL (4.1-5.3); Red Cell Distribution Width 12.2 % (12.1-15.1); White Blood Count 5.8 10^3/uL (4.0-10.0)
--- NOTE | 2022-09-05 09:00 | PM.OBGYDC ---
Discharge Providers EMBEDDED SOFTWARE DEVELOPMENT ENGINEER Date of Admission: 09/03/22 17:51 Date of Discharge: 09/05/22 Attending Provider at Admission: Cruz Valdez MD Attending Provider at Discharge: Cruz Valdez MD Primary EMBEDDED SOFTWARE DEVELOPMENT ENGINEER: Cruz Valdez MD Primary Care Provider: Cruz Valdez MD Reason for Visit Reason for Visit: abnormal ultrasound, sent by [facility] Course Hospital Course Mrs Coleman 36 y/o female patient with LMP of 08/07/22 with a right adnexal mass, decreasing quantitative Hcg, and vaginal bleeding. Admitted for diagnostic laparoscopy, findings during laparoscopy noted were hemoperitoneium, a right dilated fallopian tube, bleeding through fimbriae and omental adhesions to right lower anterior abdominal wall. A right salpingectomy and lysis of adhesions was performed without complications. Overnight postop observation was uneventful, she is afebrile and hypodermically stable. Tolerating diet well, ambulating without difficulty. She was counseled regarding pelvic rest for 6 weeks (no sex, no tampons, no vaginal douches). Return to the emergency room if any fever, increased bleeding or pain. Physical Exam Narrative: GA: Alert and oriented ?3. HEENT: WNL. Heart: Regular rate and rhythm. Lungs: Clear to auscultation bilaterally. Abdomen: Bowel sounds present, nontender, minimal tenderness, incision clean and dry, no redness, pain or edema. PST SUPERVISOR: spotting bleeding. Extremities: No edema, no cyanosis, no calves pain. Urinary Catheter Management: Arriaga Latex: Cath Placed During This Visit: yes Urinary Catheter Date of Insertion: 09/04/22 Urinary Catheter Time of Insertion: 10:15 Discharge Data Studies Completed and Pending Completed Studies During Hospitalization Category Date Time Status CT abdomen pelvis w con* [id number] Stat Cat Scan 09/03/22 11:17 Completed Pending at discharge Category Date Time Status ES surgery / GI images Stat Exams 09/04/22 09:30 Taken Pathology: Surgical [PTH] Routine Pth 09/04/22 11:19 Ordered Radiology Impressions Abdomen/Pelvis CT 09/03/22 11:17 Impression: 1. Lesion measuring approximately 1.9 x 3.6 x 7.3 cm located adjacent to the right lateral superior bladder and right lateral aspect of the uterus which could represent blood or tissue perhaps in the broad ligament with possible involvement of bowel. This lesion could represent inflammatory tissue. 2. Fluid in the cul-de-sac. Laboratory Results WBC 5.8 10^3/uL (4.0-10.0) 09/05/22 04:53 RBC 3.33 10^6/uL (4.1-5.3) L 09/05/22 04:53 Hgb 10.5 g/dL (11.5-15.3) L 09/05/22 04:53 Hct 31.6 % (37.0-47.0) L 09/05/22 04:53 MCV 94.9 fl (81-99) 09/05/22 04:53 MCH 31.5 pg (28.0-34.0) 09/05/22 04:53 MCHC 33.2 g/dL (30.0-36.0) 09/05/22 04:53 RDW 12.2 % (12.1-15.1) 09/05/22 04:53 Plt Count 201 10^3/cmm (130-400) 09/05/22 04:53 MPV 9.9 fL (7.4-10.4) 09/05/22 04:53 Neut % (Auto) 50.9 % 09/04/22 04:42 Lymph % (Auto) 40.2 % 09/04/22 04:42 [place] % (Auto) 6.6 % 09/04/22 04:42 Eos % (Auto) 1.8 % 09/04/22 04:42 Baso % (Auto) 0.3 % 09/04/22 04:42 Neut # (Auto) 3.17 10^3/uL (1.8-7.7) 09/04/22 04:42 Lymph # (Auto) 2.5 10^3/uL (0.8-4.8) 09/04/22 04:42 [place] # (Auto) 0.4 10^3/uL (0.2-0.9) 09/04/22 04:42 Eos # (Auto) 0.1 10^3/uL (0.0-0.8) 09/04/22 04:42 Baso # (Auto) 0.0 10^3/uL (0.0-0.1) 09/04/22 04:42 Nucleated RBC % (auto) 0 % 09/04/22 04:42 Nucleated RBCs # 0.0 /100WBC 09/04/22 04:42 Sodium 138 mmol/L (136-145) 09/03/22 12:32 Potassium 3.6 mmol/L (3.5-5.1) 09/03/22 12:32 Chloride 101 mmol/L (98-107) 09/03/22 12:32 Carbon Dioxide 26 mmol/L (22-29) 09/03/22 12:32 Anion Gap 14.6 (5-19) 09/03/22 12:32 BUN 7 mg/dL (6-20) 09/03/22 12:32 Creatinine 0.8 mg/dL (0.5-0.9) 09/03/22 12:32 GFR Calculation 82.1 mL/min (90-130) L 09/03/22 12:32 Glucose 124 mg/dL (65-115) H 09/03/22 12:32 Calculated Osmolality 285 mOsm/kg (285-295) 09/03/22 12:32 Calcium 9.1 mg/dL (8.5-10.5) 09/03/22 12:32 Total Bilirubin 0.3 mg/dL (0.15-1.2) 09/03/22 12:32 AST 12 U/L (0-32) 09/03/22 12:32 ALT 11 U/L (0-33) 09/03/22 12:32 Alkaline Phosphatase 63 U/L (35-105) 09/03/22 12:32 Total Protein 7.5 g/dL (6.6-8.7) 09/03/22 12:32 Albumin 4.6 g/dL (3.5-5.2) 09/03/22 12:32 Globulin 2.9 g/dL (1.3-4.6) 09/03/22 12:32 HCG, Qual Positive (Negative) H 09/03/22 12:32 Ser , Semi-Qnt 1969.00 mIU/mL 09/03/22 12:32 Vitals Last Vital Signs Temp 98.1 F 09/05/22 04:56 Pulse 82 09/05/22 04:56 Resp 16 09/05/22 04:56 BP 98/63 09/05/22 04:56 Pulse Ox 96 09/05/22 04:56 O2 Del Method Room Air 09/05/22 04:56 O2 Flow Rate 6 09/04/22 11:23 Discharge Plan Discharge Patient Disposition: Home Condition: Stable Prescriptions: New hydrocodone-acetaminophen 5-325 mg tablet 1 tab PO Q4H PRN (Reason: pain) Qty: 20 0RF acetaminophen 325 mg capsule 325 mg PO Q4H PRN (Reason: fever or pain) Qty: 60 0RF ferrous sulfate [Iron (ferrous sulfate)] 325 mg (65 mg iron) tablet 325 mg PO BID Qty: 60 0RF ibuprofen 800 mg tablet 800 mg PO TID PRN (Reason: pain) Qty: 60 0RF ketorolac 10 mg tablet 10 mg PO Q6H Qty: 60 0RF Continued No Known Home Medications Discontinued lidocaine-epinephrine (PF) 2 %-1:200,000 solution 3 ml SUBCUT ONCE Qty: 1 0RF povidone-iodine [Betadine Swabsticks] 10 % swab 1 applic topical ONCE Qty: 150 0RF Discharge Orders: Discharge Order (Routine); Ordered 09/05/22 Ordered By: Cruz Valdez Referrals: Cruz Valdez MD [Primary Care Provider] - Discharge Diet: Usual diet Discharge Activity: Limit activity as instructed Patient Instructions: Ectopic (GEN), Salpingectomy (GEN), Exploratory Laparotomy (GEN), OB Discharge Report, Opioid Safety Activity Restrictions/Additional Instructions: 1. Please call [facility] on next working day to make your post-operative appointment in 2 weeks. 2. Please stay home until you come back to the clinic on first post-hospatilization check up. 3. Please follow instructions on your medications CAREFULLY. 4. If you have abdominal incision, do not cover it unless dressing is necessary because of drainage. OK to shower, but avoid bath. Leave steri-strips until they fall off. If they are still on one week after surgery, you may remove them. 5. If you had vaginal surgery or vaginal repair, Dr. Valdez may instruct you to take SITZ bath. 6. Yellow, blood tinged odorous vaginal discharge is usually normal after hysterectomy or vaginal surgeries. 7. No SEXUAL INTERCOURSE, tampons, or douches until you are completely released from the post-operative care. 8. Avoid constipation by eating right and maybe using some Metamucil or Milk of Magnesia. 9. All prescription refills are given during the working hours. Please do no wait till it runs out. Call the clinic at [phone] before your medication runs out. The clinic will get in touch with your doctor to prescribe medications if necessary. 10. Please remain within 40 mile radius from our hospital because emergencies do happen now and then during the post-operative period. 11. If you have stairs at home, take one step at a time slowly and minimize the number of trips. It helps to stay in one floor for the next few days. No lifting except what you can lift by one hand until you are released from the post-operative care. 12. Driving is discouraged until you are well healed. It may be 3-4 weeks before you feel strong enough to drive. You should be able to turn and look through the rear window without pain and you should be able to push the brake pedal very hard without pain before you drive. No fast rules, but SAFETY should be your primary concern. DO NOT drive if you are on sedating medications such as narcotics. 13. Call the clinic (during working hours) to make urgent appointment or go to the Emergency room, if any of the following occurs: i. Vaginal bleeding becomes heavy, more than a period. ii. Incision becomes red and sore, or drains pus. iii. Your TEMPERATURE is over 100.4F or you have chill. iv. IV site becomes red and swollen (a little ``knot?? is usually OK) v. Persistent nausea and vomiting vi. Persistent constipation or diarrhea vii. Rash or allergic reaction to medications. Discharge Attestations EMBEDDED SOFTWARE DEVELOPMENT ENGINEER Time Spent in Discharge Care*: greater than 30 min Coding Level of Care Code Acute Code for Chg Fwd Diagnoses
[2022-09-05 10:00] VITALS: BP 90/60; PULSE 82; RESP 18; TEMP 37.2
[2022-09-05 10:23] VITALS: BP 90/60; PULSE 82; RESP 18; TEMP 37.2
== END 2022-09-05 10:10 | disposition home or self-care (01) | DRG 819 ==
LOC: ER 17:19 → OBGYN 18:03
PROVIDERS: Admitting Provider Obstetrics & Gynecology; Emergency Provider Family Medicine; PCP Obstetrics & Gynecology; Visit Provider Obstetrics & Gynecology
PROC: 10T24ZZ Resection of Products of Conception, Ectopic, Percutaneous Endoscopic Approach (ICD-10-PCS; CPT 49320; principal; 2022-09-04 09:30)
PROC: 10T24ZZ Resection of Products of Conception, Ectopic, Percutaneous Endoscopic Approach (ICD-10-PCS; CPT 58661; 2022-09-04 09:30)
PROC: 10T24ZZ Resection of Products of Conception, Ectopic, Percutaneous Endoscopic Approach (ICD-10-PCS; 2022-09-04 09:30)
DX: O00.101 Right tubal pregnancy without intrauterine pregnancy (principal); N73.6 Female pelvic peritoneal adhesions (postinfective)
CPT/HCPCS: 36415; 74177; 80053; 84702; 84703; 85025; 85027; 88305; J0690; J1170; J1200; J1885; J2250; J2405; J2704; J2710; J3010; J3490; J7030; J7121; Q9967

== ENCOUNTER → 2022-12-14 14:25 | Outpatient (BNVA) | payer BC, MEDICAID, SELFPAY | PROVIDERS: PCP Family Medicine; Visit Provider Dermatology | DX: L30.9 Dermatitis, unspecified (principal) | CPT/HCPCS: 11102; 99204 ==